=== PATIENT | male | born 1965 | race Caucasian/White ===

== ENCOUNTER 2022-12-13 20:55 | Emergency (ER) | payer OTHER ==
[~2022-12-13] VITALS: Ht 172.7 cm; Wt 74.4 kg
[2022-12-14 00:30] LABS: BASOPHILS % (AUTO) 1.1 % (0.0-5.0); EOSINOPHILS % (AUTO) 3.4 % (0.0-8.0); HEMATOCRIT 43.3 % (42-54); LYMPHOCYTES % (AUTO) 29.8 % (21.0-51.0); MEAN CORPUSCULAR HEMOGLOBIN 32.8 pg (27.0-33.0); MEAN CORPUSCULAR HGB CONC 33.7 g/dL (32.0-36.0); MEAN CORPUSCULAR VOLUME 97.3 fL (79-99); MONOCYTES % (AUTO) 10.4 % (3.0-13.0); NEUTROPHILS % (AUTO) 54.9 % (40.0-77.0); PLATELET COUNT (AUTO) 131 K/uL (130-400); RED BLOOD CELL COUNT(AUTO) 4.45 MIL/uL (4.50-6.20); RED CELL DISTRIBUTION WIDTH 13.3 % (11.0-15.5); WHITE BLOOD COUNT (AUTO) 5.4 K/uL (4.8-10.8)
[2022-12-14] MEDS ORDERED: KETOROLAC 15MG/ML VIAL (15MG/ML) IV ONE (00:30)
[2022-12-14 00:50] LABS: POTASSIUM 4.1 mmol/L (3.5-5.1)
[2022-12-14 00:55] LABS: ALBUMIN 3.4 g/dL (3.5-5.0); TOTAL PROTEIN, SERUM 7.6 g/dL (6.0-8.3)
[2022-12-14] MEDS ORDERED: CEFU500T67 PO (01:17)
[2022-12-14 01:30] VITALS: BP 124/64
[2022-12-14] MEDS ORDERED: CEFTRIAXONE 1G VIAL IVPB ONE (01:30)
== END 2022-12-14 01:58 | disposition home or self-care (01) ==
LOC: EDH 20:55
DX: T69.022A Immersion foot, left foot, initial encounter (principal); S82.891S Other fracture of right lower leg, sequela; X58.XXXS Exposure to other specified factors, sequela
CPT/HCPCS: 99284; 80053; 85025; 36415; 96365; 71045; 96375; 73610; 73630; J0696; J1885